=== PATIENT | male | born 1965 | race African-American/Black ===

== ENCOUNTER 2023-03-03 00:37 | Emergency (ER) | payer SELFPAY ==
[~2023-03-03] VITALS: Ht 182.9 cm; Wt 99.0 kg
[2023-03-03 00:58] VITALS: BP 162/114; PULSE 86; RESP 16; TEMP 98.5; O2SAT 98
== END 2023-03-03 03:29 | disposition home or self-care (01) ==
LOC: ER 00:37
DX: S80.01XA Contusion of right knee, initial encounter (principal); I10 Essential (primary) hypertension; W01.0XXA Fall on same level from slipping, tripping and stumbling without subsequent striking against object, initial encounter; Y93.89 Activity, other specified; Y92.89 Other specified places as the place of occurrence of the external cause; Y99.8 Other external cause status
CPT/HCPCS: 29505; 73562; 99283

== ENCOUNTER 2023-06-16 01:45 | Emergency (ER) | payer BC ==
[~2023-06-16] VITALS: Ht 177.8 cm; Wt 71.0 kg
[2023-06-16 02:08] VITALS: BP 163/102; PULSE 79; RESP 18; TEMP 98; O2SAT 100
[2023-06-16] MEDS ORDERED: ASPI-1406 MT (04:09)
[2023-06-16] MEDS ORDERED: ATOR10TA69 MT (04:09)
[2023-06-16] MEDS ORDERED: CARV25TA47 MT (04:09)
[2023-06-16] MEDS ORDERED: BUME2TAB34 MT (04:09)
== END 2023-06-16 05:00 | disposition home or self-care (01) ==
LOC: ER 02:28
DX: I10 Essential (primary) hypertension (principal); Z76.0 Encounter for issue of repeat prescription
CPT/HCPCS: 99281

== ENCOUNTER 2023-08-06 08:00 | Emergency (ER) | payer BC ==
[~2023-08-06] VITALS: Ht 175.3 cm; Wt 85.0 kg
[~2023-08-06 08:00] MED LIST: ASPI-1406 MT; ATOR10TA69 MT; BUME2TAB34 MT; CARV25TA47 MT
[2023-08-06 08:11] VITALS: BP 162/81; PULSE 61; TEMP 97.9; O2SAT 98
[2023-08-06] MEDS ORDERED: ATOR10TA69 MT (08:27)
[2023-08-06] MEDS ORDERED: BUME2TAB34 MT (08:27)
[2023-08-06] MEDS ORDERED: ASPI-1406 MT (08:27)
[2023-08-06] MEDS ORDERED: CARV25TA47 MT (08:27)
[2023-08-06 08:40] VITALS: RESP 16
== END 2023-08-06 08:41 | disposition home or self-care (01) ==
LOC: ER 08:05
DX: R68.89 Other general symptoms and signs (principal); I10 Essential (primary) hypertension; Z76.0 Encounter for issue of repeat prescription
CPT/HCPCS: 99281; 99283

== ENCOUNTER 2024-06-14 03:50 | Emergency (ER) | payer BC ==
[~2024-06-14] VITALS: Ht 177.8 cm; Wt 107.2 kg
[2024-06-14 04:34] VITALS: O2SAT 99
[2024-06-14 04:35] VITALS: BP 186/118; PULSE 90; RESP 16; TEMP 36.7; O2SAT 100
[2024-06-14] MEDS ORDERED: ASPI-1406 MT (04:51)
[2024-06-14] MEDS ORDERED: BUME2TAB34 MT (04:51)
[2024-06-14] MEDS ORDERED: CARV25TA47 MT (04:51)
[2024-06-14] MEDS ORDERED: ATOR10TA69 MT (04:51)
== END 2024-06-14 06:35 | disposition home or self-care (01) ==
LOC: ER 03:50
DX: Z76.0 Encounter for issue of repeat prescription (principal); I10 Essential (primary) hypertension; Z79.82 Long term (current) use of aspirin; Z79.899 Other long term (current) drug therapy
CPT/HCPCS: 99281

== ENCOUNTER 2024-12-04 23:55 | Emergency (ER) | payer BC ==
[~2024-12-04] VITALS: Ht 175.3 cm; Wt 84.0 kg
[~2024-12-04 23:55] MED LIST changes: +BUME2TAB MT; -BUME2TAB34 MT
[2024-12-05 00:03] VITALS: BP 150/100; PULSE 77; RESP 18; O2SAT 99
== END 2024-12-05 00:59 | disposition home or self-care (01) ==
LOC: ER 23:55
DX: I10 Essential (primary) hypertension (principal); Z76.0 Encounter for issue of repeat prescription; Z79.899 Other long term (current) drug therapy
CPT/HCPCS: 99281